=== PATIENT | male | born 1980 | race Caucasian/White ===

== ENCOUNTER 2018-12-01 22:27 | Emergency (ER) | payer BC ==
[~2018-12-01] VITALS: Ht 180.3 cm; Wt 65.8 kg
[2018-12-01 23:02] LABS: BASO % 0.3 % (0.0-1.0); EOS % 0.1 % (1.0-4.0); HEMATOCRIT 40.1 % (42.0-52.0); HEMOGLOBIN 13.2 g/dl (14.0-18.0); LYMPH # 1.9 10*3/uL (1.3-4.4); LYMPH % 17.4 % (27.0-41.0); MEAN CORPUSCULAR HGB 31.3 pg (27.0-31.0); MEAN CORPUSCULAR HGB CONC 32.9 g/dl (33.0-37.0); MEAN PLATELET VOLUME 9.2 fl (9.6-12.3); MONO # 0.5 10*3/uL (0.1-1.0); MONO % 4.4 % (3.0-9.0); NEUT # 8.4 10*3/uL (2.3-7.9); NEUT % 77.5 % (47.0-73.0); PLATELET COUNT AUTOMATED 205 10*3/uL (130-400); RED BLOOD COUNT 4.22 10*6/uL (4.50-5.90); RED CELL DISTRI WIDTH 12.7 % (0-14.5); WHITE BLOOD COUNT 10.9 10*3/uL (4.8-10.8)
[2018-12-01 23:37] LABS: ALBUMIN 3.9 gm/dl (3.1-4.5); ALKALINE PHOSPHATASE 57 U/L (45-117); BUN 11 mg/dl (7-24); CHLORIDE 107 mmol/L (98-107); CREATININE 1.09 mg/dL (0.70-1.30); LIPASE 52 U/L (73-393); POTASSIUM 3.4 mmol/L (3.5-5.1); SGOT/AST 13 IU/L (3-35); SGPT/ALT 17 U/L (12-78); SODIUM 141 mmol/L (136-145); TOTAL PROTEIN 6.9 gm/dL (6.4-8.2)
== END 2018-12-02 00:05 | disposition home or self-care (01) ==
LOC: ED 22:27
PROVIDERS: Emergency Medicine Emergency Medical Services
DX: A08.4 Viral intestinal infection, unspecified (principal)